=== PATIENT | male | born 1990 | race Caucasian/White ===

== ENCOUNTER 2018-05-22 02:27 | Emergency (ER) | payer SELFPAY ==
[~2018-05-22] VITALS: Ht 172.7 cm; Wt 63.5 kg
[2018-05-22 02:27] VITALS: BP 124/76
[~2018-05-22 02:27] MED LIST: MOTRIN800 MG PO
== END 2018-05-22 03:37 | disposition home or self-care (01) ==
LOC: ED 02:27
DX: T15.01XA Foreign body in cornea, right eye, initial encounter (principal); X58.XXXA Exposure to other specified factors, initial encounter; Y93.89 Activity, other specified; Y92.89 Other specified places as the place of occurrence of the external cause; Y99.8 Other external cause status

== ENCOUNTER 2019-09-20 18:13 | Emergency (ER) | payer SELFPAY ==
[~2019-09-20] VITALS: Ht 170.1 cm; Wt 63.5 kg
[2019-09-20 18:18] VITALS: BP 143/87
== END 2019-09-20 18:45 | disposition home or self-care (01) ==
LOC: ED 18:13
DX: T15.91XA Foreign body on external eye, part unspecified, right eye, initial encounter (principal); X58.XXXA Exposure to other specified factors, initial encounter; Y93.89 Activity, other specified; Y92.89 Other specified places as the place of occurrence of the external cause; Y99.8 Other external cause status

== ENCOUNTER 2024-04-05 08:22 | Emergency (ER) | payer MEDICAID ==
[~2024-04-05] VITALS: Ht 172.7 cm; Wt 68.0 kg
[2024-04-05 08:41] VITALS: BP 123/77
[2024-04-05] MEDS ORDERED: AVPAK AZITHROM250 MG PO (09:00)
== END 2024-04-05 09:03 | disposition home or self-care (01) ==
LOC: ED 08:22
DX: J40 Bronchitis, not specified as acute or chronic (principal); F17.290 Nicotine dependence, other tobacco product, uncomplicated; Z98.890 Other specified postprocedural states

== ENCOUNTER 2024-11-11 15:33 | Emergency (ER) | payer MEDICAID ==
[~2024-11-11] VITALS: Ht 170.1 cm; Wt 68.0 kg
[~2024-11-11 15:33] MED LIST changes: +AVPAK AZITHROM250 MG PO
[2024-11-11 16:09] VITALS: BP 142/73
[2024-11-11] MEDS ORDERED: PENICILLIN VK500 MG PO (16:27)
[2024-11-11] MEDS ORDERED: Motrin,Rufen800 MG PO (16:27)
[2024-11-11] MEDS ORDERED: PENICILLIN V POTASSIUM 500 MG TAB PO ONE (16:30)
[2024-11-11] MEDS ORDERED: IBUPROFEN 800 MG TAB PO ONE (16:30)
== END 2024-11-11 16:30 | disposition home or self-care (01) ==
LOC: ED 15:33
DX: K04.7 Periapical abscess without sinus (principal); Z79.899 Other long term (current) drug therapy; Z98.890 Other specified postprocedural states